=== PATIENT | female | born 1930 | race Caucasian/White ===

== ENCOUNTER 2020-05-18 00:30 | Inpatient (IN) | payer MEDICARE, BC ==
[2020-05-18] MEDS ORDERED: Ondansetron ODT 4 MG TAB PO PRN (02:24)
[2020-05-18] MEDS ORDERED: Calcium Carbonate 500 MG ChewTAB PO PRN (02:24)
--- NOTE | 2020-05-18 02:41 | PDOC.FPRHP ---
- History of Present Illness Chief Complaint: left arm weakness History of Present Illness: Pt is a 89yo F with a PMH who presents with chief complaint of HTN, HLD, Diabetes, history of melanoma. Patient stated today around 1600, she noticed her left arm started to become weak while to dress herself after getting out of the shower. She states her arm turned blue and it was a numbness/tingling sensation. She went to [place] ED and was evaluated there and then transferred to [facility]. She states she still has weakness and parasthesias in her arm, she thinks originating either at her shoulder or elbow and affecting her whole hand. She denies any episodes of anything like this in the past. She denies any repetitive motions overhead or doing any work outside of her ordinary everyday tasks and chores. She states she has been feeling normal recently and denies CHOWDHURY, vision changes, dizziness, SOB, LOC, CP, abdominal pain. Daughter notices some memory defecits where she does not remember telling her something, so she repeats it frequently. She denies any cardiac history or past history of stroke or TIA. She has occasional swelling in her LE which she elevates her legs to resolve, and occasional episodes of hypoglycemia when she forgets to eat. She used to be on insulin but now just takes Glipizide for her diabetes. She does not take her glucose at home, but was noted to be in the 30s when EMS arrived at her house today and was resolved with juice and a snack. She lives at home independently and is able to care for herself. ED Course: ASA, 20mg labetalol CT head negative CXR negative - Allergies/Adverse Reactions Allergies Allergy/AdvReac Type Severity Reaction Status Date / Time No Known Drug Allergies Allergy Verified 05/18/20 05:22 - History PMHx: HTN, HLD, Diabetes, history of melanoma PSHx: melanoma, knee replacement, c section, hysterectomy, appendix, eye, tonsils FHx: denies Social: denies alcohol, tobacco, drug history - Review of Systems General: denies: fever/chills Eyes: denies: vision changes Respiratory: denies: cough, shortness of breath Cardiovascular: reports: edema. denies: chest pain, palpitation Gastrointestinal: denies: nausea, vomiting Skin: denies: rashes Musculoskeletal: reports: pain Neurological: reports: numbness, weakness. denies: syncope - Vital signs BP: 199/99 HR: 80 RR: 16 Tmax: 98.3 Pox: 99% on RA Wt: 82kg - Physical Exam Constitutional: NAD, awake, alert and oriented HEENT: normocephalic and atraumatic, EOMI, grossly normal vision, grossly normal hearing Neck: supple Chest: no-tender to palpation -Heart: 1+ pitting edema b/l LE systolic murmur 3/6 appreciated on exam pulses not appreciated on exam of LUE, no pulse confirmed in radial or ulnar artery on bedside doppler Lungs: CTAB, no respiratory distress, no wheezing Abdomen: soft, non-tender Neurological: CN II-XII intact -Neurological: 4/5 weakness of left arm, with being slower to perform actions with left side left hand and arm cool to the touch Heme/Lymphatic: no unusual bruising or bleeding Psychiatric: normal mood and affect, good judgment and insight FMR H&P: Results - Labs Result Diagrams: 05/18/20 09:21 05/18/20 03:40 - EKG Interpretation EKG: NSR FMR H&P: A/P - Plan Left arm weakness 2/2 likely plexopathy vs acute upper extremity ischemia vs dissection vs TIA -patient with complaints of weakness, parasthesias and cool CHRISTEN extremity -pulses not appreciated on exam or with doppler, although were appreciated on ED provider exam -CTA of chest and LUE pending -lipid panel, A1C pending -consider CV surgery consult pending results of imaging -if CTA negative, will workup stroke rule out -PT/OT consulted Systolic murmur -new as per patient report -occasional LE swelling -echo pending -continuous cardiac monitoring HTN -aware, continue home meds -Hydralazine PRN HLD -aware, lipid panel pending -will start patient on statin Memory Defecit -aware -speech consulted for cognitive exam Diabetes -aware, continue home meds -history of hypoglycemia when she does not eat, will monitor -A1C pending -accu checks -SSI Dispo: admit to obs, stroke Diet: CC PCP: city call (Dr Hernandez) Fluids: KVO DVT ppx: Lovenox Code: DNAR, palliative consulted to discuss advance care planning FMR H&P: Upper Level - Plan Date/Time: 05/18/20 0236 Hai Hand PGY3, have evaluated this patient and agree with findings/plan as outlined by regulatory affairs internship resident. Pertinent changes/additions are listed here. 89-year-old female with medical history of type 2 diabetes presents for new onset weakness of left arm after getting hour of the shower around 4 PM. Transferred from [facility] and called for stroke workup. She states weakness, pain, and hand turning purple was noticed especially while trying to put on clothing, no loss of consciousness. She has history of cervical stenosis but it has not caused this symptom before. CT brain in [place] was negative. Otherwise patient asymptomatic. Daughter states that she has been having some memory problems recently repeating herself frequently. On exam patient is well-appearing, vitals show hypertension but otherwise normal. Cardiopulmonary exam significant for heart murmur. Neurologic exam significant for left upper extremity weakness and paresthesia. No pulses palpa dino on L radial or ulnar artery Assessment and plan LUE weakness Exam concerning for Acute upper extremity ischemia. Will get stat CTA RUE and Chest to r/o aortic dissection. If studies negative will workup TIA vs. CVA. She is out of window for TPA. CT brain normal. Status post aspirin. Will admit to stroke for observation. echocardiogram, CTA head and neck and MRI if CTAs vascular workup is negative, fasting lipid panel. Will consult physical therapy. Memory deficit Daughter states this has been more gradual problem however considering admission for neurologic deficit will consult speech therapy to do a cognitive assessment to establish baseline. Type 2 diabetes Consistent carb diet, sliding scale insulin, restart home medications History of hypertension, hyperlipidemia, melanoma MD aware, continue home meds Code-DNAR Disposition- stroke, observation, expect less than 2 midnights [facility] PCP-Dennis Hernandez Addendum - Attending - Attending Attestation Date/Time: 05/18/20 3389 I personally evaluated the patient and discussed the management with Dr. Hernandes/Hebert. I agree with the History, Examination, Assessment and Plan documented above with any addition or exceptions noted below. Patient here for sudden onset of arm weakness and paresthesias associated with lack of pulse and mottling of skin in that arm. CTA shows occlusion. Heparin drip, CV surgery consult.
[2020-05-18] MEDS ORDERED: Dextrose 50% Abboject 50 ML SYRINGE SLOW IVP PRN (03:52)
[2020-05-18] MEDS ORDERED: Dextrose 5% in Water 1,000 ML IV PRN (03:52)
[2020-05-18] MEDS ORDERED: HumaLOG 300 UNITS/3 ML VIAL SC PRN ×2 (03:52→03:59)
[2020-05-18 03:58] LABS: #Basophils 0.1 thou/uL (0.0-0.2); #Eosinphils 0.1 thou/uL (0.0-0.7); #Lymphocytes 1.8 thou/uL (1.20-3.40); #Monocytes 0.5 thou/uL (0.11-0.59); #Neutrophils 5.8 thou/uL (1.40-6.50); %Basophils 0.8 % (0.0-1.0); %Eosinophils 1.3 % (0.0-10.0); %Lymphocytes 22.2 % (21.0-51.0); %Monocytes 6.1 % (0.0-10.0); %Neutrophils 69.6 % (42.0-75.0); Hemoglobin 13.6 g/dL (12.0-16.0); Mean Corpuscular HGB CONC 32.5 g/dL (32.0-36.0); Mean Corpuscular Hemoglobin 29.7 pg (27.0-31.0); Mean Corpuscular Volume 91.3 fL (78.0-98.0); Mean Platelet Volume 10.7 fL (7.4-10.4); Platelet Count 151 thou/uL (130-400); RBC Distribution Width 12.2 % (11.5-14.5); Red Blood Cell (RBC) Count 4.59 mill/uL (4.20-5.40); White Blood Cell (WBC) Count 8.3 thou/uL (4.8-10.8)
[2020-05-18] MEDS ORDERED: hydrALAZINE 20 MG/ML VIAL SLOW IVP PRN (03:59)
[2020-05-18 04:19] LABS: Albumin 3.3 g/dL (3.4-4.8)
[2020-05-18 04:20] LABS: Chloride 101 mmol/L (98-107); Potassium 4.2 mmol/L (3.5-5.1); Sodium 133 mmol/L (136-145)
[2020-05-18 04:21] LABS: Calcium 8.7 mg/dL (7.8-10.44); Glucose 146 mg/dL (83-110)
[2020-05-18 04:22] LABS: Globulin 3.5 g/dL (2.4-3.5); Hemoglobin A1c 6.4 % (4.0-6.0); Protein, Total 6.8 g/dL (6.0-8.3); Triglycerides 131 mg/dL (Less than 150)
[2020-05-18 04:23] LABS: Bilirubin, Total 0.5 mg/dL (0.2-1.2); Carbon Dioxide 17 mmol/L (23-31)
[2020-05-18 04:24] LABS: Alkaline Phosphatase 29 U/L (40-110)
[2020-05-18 04:25] LABS: Calc. Creatinine Clearance 0 mL/min (70-130)
[2020-05-18 04:26] LABS: BUN (Urea Nitrogen) 25 mg/dL (9.8-20.1); Cholesterol 130 mg/dl (< 200 Desired)
[2020-05-18 04:27] LABS: ALT (SGPT) 9 U/L (8-55); AST (SGOT) 22 U/L (5-34); Cardiac Risk 2.8 (Less than 4.5); HDL Cholesterol 47 mg/dL (>60 Neg Risk); LDL Cholesterol, Calculated 57 mg/dL
[2020-05-18 04:40] LABS: Anion Gap 19 mmol/L (10-20)
[2020-05-18] MEDS ORDERED: Heparin 10,000 UNITS/ 10 ML VIAL SLOW IVP SCH ×2 (07:45→08:15)
[2020-05-18] MEDS ORDERED: Heparin 25,000 units/D5W 500 ML IVPB SCH ×2 (07:45→08:15)
[2020-05-18] MEDS ORDERED: Enoxaparin Sodium 40 MG/0.4 ML SYRINGE SC SCH (09:00)
--- NOTE | 2020-05-18 09:18 | CT ---
PRELIMINARY REPORT/[facility]/EMERGENCY AFTER HOURS PROCEDURE: EXAM: CTA Chest with Intravenous Contrast CLINICAL HISTORY: Eval for possible aortic dissection TECHNIQUE: Axial CTA images of the chest with intravenous contrast. Three-dimensional MIP/volume rendered reform ations were performed. CONTRAST: With; ISOVUE 370,100mL COMPARISON: None provided. FINDINGS: PULMONARY ARTERIES There is no intraluminal filling defect suspicious for PE. AORTA No thoracic aortic aneurysm or dissection. LUNGS The lungs are clear. No pulmonary mass. No focal airspace consolidation. PLEURAL SPACES No pleural effusion. No pneumothorax. HEART AND MEDIASTINUM No cardiomegaly. No significant pericardial effusion. LYMPH NODES No lymphadenopathy. BONES No focal osseous abnormality or acute fracture. Moderate degenerative changes of the spine. CHEST WALL AND UPPER ABDOMEN Images through the upper abdomen are unremarkable. The chest wall is unremarkable. IMPRESSION: There is no evidence of arterial emboli. There is no evidence of acute infiltrate or effusion. The central airway is patent.. ELECTRONICALLY SIGNED BY: Joanna Hidalgo DO May 18, 2020 6:07:19 AM MEDICAL DRIVER This report is intended for review by the ordering physician only, in accordance of law. If you recei ve this report in error, please call [facility] at [phone]. FINAL REPORT CTA OF THE CHEST CTA OF THE LEFT UPPER EXTREMITY WITH CONTRAST: HISTORY: Left upper extremity cool to touch. Evaluate for arterial occlusion. TECHNIQUE: 1. Multiple contiguous axial images were obtained in a CTA of the chest with contrast. Three-D sagi ttal and coronal MIP reformats were performed. 2. Multiple contiguous axial images were obtained in a CTA of the left upper extremity with contrast . Three-D sagittal and coronal MIP reformats were performed. FINDINGS/IMPRESSION: I agree with the findings and impression given in the preliminary report per [facility] physici an. 1. There is a segment of occlusion of the proximal left axillary artery over a length of approximate ly 2.8 cm. There is flow distally and this occlusion may be a partial occlusion or flow that is esta blished distally via collateral vasculature. 2. Left renal cyst. POS: EAA
[2020-05-18] MEDS: Aspirin 325 mg Enteric Coated Tablet PO SCH (09:29)
[2020-05-18 09:35] LABS: Hemoglobin 12.9 g/dL (12.0-16.0); Platelet Count 142 thou/uL (130-400)
[2020-05-18] MEDS: Senokot S 8.6-50 MG TAB PO SCH ×2 (09:50→20:23)
--- NOTE | 2020-05-18 09:50 | CT ---
PRELIMINARY REPORT/[facility]/EMERGENCY AFTER HOURS PROCEDURE: This report was discussed with Eryn Russell RN by Donald Belcher on May 18, 2020 06:30:00 CS T. Addendum electronically signed by Donald Belcher on May 18, 2020 6:35:52 AM DISABILITY CASE MANAGER EXAM: CTA Left upper extremity CLINICAL HISTORY: Eval for possible arterial occlusion to left upper extremity; Arm cool to touch; pt c/o weakness to e xtremity TECHNIQUE: Axial computed tomography images of the chest with intravenous contrast. CONTRAST: With; ISOVUE 370,100mL COMPARISON: None provided. FINDINGS: Aorta has a normal caliber. The opacification of the left subclavian artery is normal. At the junct ion of the subclavian and left axillary arterial region there is a cut off of contrast in this portio n of the left axillary artery. This may represent a partial or complete occlusion. There is contra st identified in the arterial structures just distal to this region including the distal axillary, th e brachial, cephalic and ulnar arteries which are patent. The osseous structures and soft tissues are appropriate for age. No acute osseous abnormality is not ed. IMPRESSION: Diminished contrast in a portion of the left axillary artery as discussed. A partial or complete occ lusion of the left axillary is noted. Just distal to this area there is contrast identified in the d istal axillary artery and the remainder of the left upper extremity arterial structures. Further inv estigation with angiography may be required for full differentiation. ELECTRONICALLY SIGNED BY: Joanna Hidalgo DO May 18, 2020 6:30:00 AM DISABILITY CASE MANAGER This report is intended for review by the ordering physician only, in accordance of law. If you recei ve this report in error, please call [facility] at [phone]. FINAL REPORT CTA OF THE CHEST CTA OF THE LEFT UPPER EXTREMITY WITH CONTRAST: HISTORY: Left upper extremity cool to touch. Evaluate for arterial occlusion. TECHNIQUE: 1. Multiple contiguous axial images were obtained in a CTA of the chest with contrast. Three-D sagi ttal and coronal MIP reformats were performed. 2. Multiple contiguous axial images were obtained in a CTA of the left upper extremity with contrast . Three-D sagittal and coronal MIP reformats were performed. FINDINGS/IMPRESSION: I agree with the findings and impression given in the preliminary report per [facility] physici an. 1. There is a segment of occlusion of the proximal left axillary artery over a length of approximate ly 2.8 cm. There is flow distally and this occlusion may be a partial occlusion or flow that is esta blished distally via collateral vasculature. 2. Left renal cyst.
[2020-05-18 09:52] LABS: Lactic Acid 1.9 mmol/L (0.5-2.2)
[2020-05-18] MEDS ORDERED: Lidocaine 1% PF 5 ML VIAL ONE (10:08)
[2020-05-18] MEDS ORDERED: Ondansetron PF 4 MG/2 ML Vial ONE (10:08)
[2020-05-18] MEDS ORDERED: Dexamethasone 20 MG/5 ML VIAL ONE (10:08)
[2020-05-18] MEDS ORDERED: PROPOFOL 200 MG/20 ML VIAL ONE (10:08)
[2020-05-18] MEDS ORDERED: Ketorolac Tromethamine 30 MG/ML VIAL ONE (10:08)
[2020-05-18] MEDS ORDERED: Glycopyrrolate 0.2 MG/ML 5 ML SYRINGE ONE (10:08)
[2020-05-18] MEDS ORDERED: Rocuronium Bromide 10 MG/ML (10ML VIAL) ONE (10:08)
--- NOTE | 2020-05-18 13:04 | CON ---
DATE OF CONSULTATION: HISTORY OF PRESENT ILLNESS: An 89-year-old female, who got out of the shower yesterday and developed pain in her left arm that has continued. She presented to the [place] ER, then presented here, where a CT angiogram showed an axillary artery occlusion. I was contacted this morning and heparin was_ started. PAST MEDICAL HISTORY: Negative for any cardiac problems and she has had no prior cardiac evaluations. She has history of diabetes mellitus, dyslipidemia, and hypertension as well as a history of melanoma. She has had a melanoma removed, I believe from her ear, as well as a previous knee replacement, hysterectomy, appendectomy, eye surgery, and tonsillectomy. SOCIAL HISTORY: She has never smoked, does not use drugs, and lives alone. She has otherwise been in good health. PHYSICAL EXAMINATION: GENERAL: She is an elderly lady, in no distress. NECK: Without bruits. LUNGS: Clear to auscultation anteriorly. CARDIAC: Reveals a systolic murmur across the precordium. Rhythm is regular. Rate is regular. ABDOMEN: Soft, nontender. EXTREMITIES: She has no edema in her legs, with palpable popliteal pulses, palpable right radial pulse, and no palpable pulses in her left arm. She has a monophasic left brachial signal, no signal in her wrist. Her hand has capillary fill with decreased sensation and she is able to move her fingers but not normally. 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 Certainly, if she is COVID positive, then she could be hypercoagulable as well. Agreed to do an embolectomy today. Job ID: [id number] [facility]
[2020-05-18] MEDS ORDERED: Iopamidol-370 76% 500 ML 1 ML ONE (13:15)
[2020-05-18] MEDS ORDERED: Protamine Sulfate 50 MG/5 ML VIAL ONE (13:44)
[2020-05-18] MEDS ORDERED: Heparin 5,000 UNITS/ML VIAL ONE (13:44)
[2020-05-18] MEDS ORDERED: Fentanyl 100 MCG/2 ML VIAL ONE (13:45)
[2020-05-18 13:53] LABS: SARS-CoV-2 NAA Rapid Test Not Detected (NotDetected)
[2020-05-18] MEDS ORDERED: Ondansetron HCl/PF 4 MG/2 ML Vial IVP PRN (16:03)
[2020-05-18] MEDS ORDERED: traMADol HCl 50 MG TAB PO PRN (16:07)
[2020-05-18] MEDS ORDERED: Fentanyl 100 MCG/2 ML VIAL SLOW IVP PRN (16:07)
[2020-05-18] MEDS: Lactated Ringer's 1,000 ML IV SCH (17:56)
[2020-05-18 18:09] LABS: PTT Greater than 250.0 sec (22.9-36.1)
[2020-05-18] MEDS: Atorvastatin Calcium 40 MG TAB PO SCH (20:22)
[2020-05-18] MEDS ORDERED: Enoxaparin Sodium 60 MG/0.6 ML SYRINGE SC SCH (21:00)
[2020-05-19 04:31] LABS: #Lymphocytes 1.1 thou/uL (1.20-3.40); #Monocytes 0.4 thou/uL (0.11-0.59); #Neutrophils 6.4 thou/uL (1.40-6.50); %Lymphocytes 13.5 % (21.0-51.0); %Monocytes 4.8 % (0.0-10.0); %Neutrophils 81.6 % (42.0-75.0); Hemoglobin 11.3 g/dL (12.0-16.0); Mean Corpuscular HGB CONC 32.7 g/dL (32.0-36.0); Mean Corpuscular Hemoglobin 29.3 pg (27.0-31.0); Mean Corpuscular Volume 89.6 fL (78.0-98.0); Mean Platelet Volume 9.5 fL (7.4-10.4); Platelet Count 140 thou/uL (130-400); Red Blood Cell (RBC) Count 3.85 mill/uL (4.20-5.40); White Blood Cell (WBC) Count 7.8 thou/uL (4.8-10.8)
[2020-05-19 05:24] VITALS: BMI 38.3
[2020-05-19] MEDS: HumaLOG 300 UNITS/3 ML VIAL SC PRN ×2 (06:10→17:57)
[2020-05-19] MEDS: Lactated Ringer's 1,000 ML IV SCH (06:26)
--- NOTE | 2020-05-19 06:28 | PDOC.FM ---
- Subjective Subjective: is doing well this morning. She says she can feel her arm and it is no longer cold or turning blue. - Objective Vital Signs & Weight: Vital Signs (12 hours) Temp Pulse Resp BP Pulse Ox 05/19/20 04:00 98.2 F 85 18 116/59 L 92 L 05/19/20 02:50 95 05/18/20 20:19 98.4 F 93 16 114/55 L 95 05/18/20 18:45 88 18 139/64 94 L Weight Admit Weight 84.958 kg Weight 88.995 kg I&O: 05/17/20 05/18/20 05/19/20 06:59 06:59 06:59 Intake Total 130 150 Balance 130 150 Result Diagrams: 05/19/20 04:23 05/19/20 07:36 EKG Reviewed by me: Yes (tele: ) Phys Exam - Physical Examination Constitutional: NAD HEENT: moist MMs, sclera anicteric Neck: no JVD, full ROM Respiratory: no wheezing, clear to auscultation bilateral Cardiovascular: RRR, no significant murmur Gastrointestinal: soft, non-tender Musculoskeletal: no edema, pulses present (radial pulse present in L upper extremity) Neurological: moves all 4 limbs Psychiatric: normal affect, A&O x 3 Skin: no rash Dx/Plan - Plan Plan: L subclavian artery occlusion s/p embolectomy -Patient with complaints of LUE weakness, parasthesias and cool CHRISTEN extremity. No pulses on presentation. -CTA LUE: partial or complete occlusion of L axillary artery -Received heparin bolus and was placed on heparin drip prior to procedure. PTT 250 post procedure. Now on lovenox BID. LR 50mL/hr. -CV surg consult (Tom): performed embolectomy on 05/18. Will hold lovenox today. Drain in place. Await further recommendations -PT/OT consulted Severe aortic stenosis -ECHO: EF 55-60%, severe aortic stenosis (0.7) -Patient denies CP or SOB. Does complain of occasional LE swelling -Consider cardiology consult HTN -Continue home meds -Hydralazine PRN HLD -Lipids wnl -Patient was started on a statin prophylactically, will now discontinue. Memory Deficit -speech consulted for cognitive exam Diabetes -continue home meds -A1C 6.4 -SSI prn Dispo: Discharge pending CV surg recommendations following LUE embolectomy Diet: CC PCP: [facility] call (Dr Hernandez) Fluids: KVO DVT ppx: Lovenox Code: DNAR, need to sign OOT DNR Addendum - Attending - Attending Attestation Date/Time: 05/19/20 3440 I personally evaluated the patient and discussed the management with Dr. Dominguez. I agree with the History, Examination, Assessment and Plan documented above with any addition or exceptions noted below. Patient reports improved L arm symptoms. Went for thrombectomy yesterday with CV surgery. Anticipate she will need chronic anticoagulation, discussed with patient this morning. Will await further recs from surgery, but once they give final recs/sign off the patient should be stable for discharge. She continues on Lovenox for now.
[2020-05-19 08:30] LABS: Anion Gap 14 mmol/L (10-20); BUN (Urea Nitrogen) 27 mg/dL (9.8-20.1); Calc. Creatinine Clearance 46 mL/min (70-130); Calcium 8.3 mg/dL (7.8-10.44); Carbon Dioxide 24 mmol/L (23-31); Chloride 100 mmol/L (98-107); Glucose 147 mg/dL (83-110); Sodium 134 mmol/L (136-145)
[2020-05-19] MEDS: Senokot S 8.6-50 MG TAB PO SCH ×2 (09:46→20:15)
[2020-05-19] MEDS: Aspirin 325 mg Enteric Coated Tablet PO SCH (09:46)
[2020-05-19] MEDS: Atorvastatin Calcium 40 MG TAB PO SCH (20:15)
[2020-05-19] MEDS ORDERED: Diltiazem 125 MG in Sodium Chloride 0.9% 100 ML IVPB SCH (23:45)
--- NOTE | 2020-05-20 02:12 | PDOC.BPN ---
- Brief Progress Note Encounter Date: 05/20/20 Encounter Time: 00:01 Was called by nursing and informed that the patient's pulse had increased to 140s - 160s, up to 200s when patient got up to go to the bathroom. BP was 126/72. Went to bedside, patient was asymptomatic, denying CP, SOB, cough, palpitations. On lung exam, she had crackles at bilateral bases. IV fluids were stopped. EKG was taken, which showed new onset atrial fibrillation with RVR. 20 mg IV dilt was given, her pulse did not improve in the next 15 minutes. BP was stable, 129//54 Second push of 30 mg IV diltiazem was given: her pulse briefly improved to the 100s-110s, then increased back to 140s. BP was 110/50 after IV push. Dilt drip was started, and will be titrated for rate control. If her BP is unable to tolerate or we are unable to achieve rate control, we will switch to amiodarone. For new onset afib, TSH, mag and phos were added to AM labs.
[2020-05-20] MEDS ORDERED: Amiodarone 150 MG, Admixture Fee 1 EACH in Dextrose 5% in Water 100 ML IVPB SCH (03:00)
[2020-05-20] MEDS: Amiodarone 450 MG in Dextrose 5% in Water 250 ML IVPB SCH ×2 (03:47→11:54)
[2020-05-20 04:29] LABS: #Eosinphils 0.1 thou/uL (0.0-0.7); #Lymphocytes 1.8 thou/uL (1.20-3.40); #Monocytes 0.6 thou/uL (0.11-0.59); #Neutrophils 4.6 thou/uL (1.40-6.50); %Basophils 0.2 % (0.0-1.0); %Eosinophils 1.3 % (0.0-10.0); %Lymphocytes 25.3 % (21.0-51.0); %Monocytes 8.2 % (0.0-10.0); Hemoglobin 10.6 g/dL (12.0-16.0); Mean Corpuscular HGB CONC 33.1 g/dL (32.0-36.0); Mean Corpuscular Hemoglobin 29.8 pg (27.0-31.0); Mean Platelet Volume 9.6 fL (7.4-10.4); Platelet Count 130 thou/uL (130-400); Red Blood Cell (RBC) Count 3.55 mill/uL (4.20-5.40); White Blood Cell (WBC) Count 7.1 thou/uL (4.8-10.8)
[2020-05-20 04:49] LABS: Magnesium 1.8 mg/dL (1.6-2.6); Phosphorus 2.3 mg/dL (2.3-4.7)
[2020-05-20] MEDS ORDERED: Enoxaparin Sodium 40 MG/0.4 ML SYRINGE SC SCH (05:30)
--- NOTE | 2020-05-20 05:40 | PRG ---
DATE OF SERVICE: As expected, the patient went into atrial fibrillation, which I suspect was her underlying intermittent rhythm at home, which had resulted in her embolus to the left arm. In any event, the bleeding from the left arm seems to have decreased over the past 24 hours with holding her Lovenox. Her wound has some mild bruising and minimal swelling and she has a good pulse, although it is rapid this morning in her left wrist. At this time, I will at least start her on low-dose Eliquis and consider increasing her dose if appropriate for her age and renal function in the next day or so. I will leave the drain in this morning. Job ID: [id number]
[2020-05-20] MEDS: HumaLOG 300 UNITS/3 ML VIAL SC PRN ×2 (05:54→11:54)
--- NOTE | 2020-05-20 06:09 | OP ---
DATE OF PROCEDURE: 05/18/2020 PREOPERATIVE DIAGNOSIS: Embolus to the left subclavian artery. POSTOPERATIVE DIAGNOSIS: Embolus to the left subclavian artery. PROCEDURE PERFORMED: Embolectomy, left subclavian artery. ANESTHESIA: General. ESTIMATED BLOOD LOSS: Less than 100. DESCRIPTION OF PROCEDURE: After adequate anesthesia had been obtained, ultrasound was used to isolate the proximal axillary artery. The patient was then prepped and draped and an incision made extending up to the edge of the pectoralis. Dissection was then carried through the subcutaneous tissues isolating the axillary artery. Brachial plexus was gently retracted with loops and then the axillary artery was followed proximally well up under the pectoralis muscle. As far as could be palpated, the subclavian artery had no pulse. Following an additional 5000 units of heparin in addition to the 1000 units an hour that was running, arteriotomy performed in the axillary artery transversely and a 3 Boo passed, first 10, then 20 cm, removing no thrombus. There was some backbleeding from the arteriotomy from distally. Finally, a pass was made to 30 cm with no thrombus and finally some resistance met at 40 cm and withdrawing the catheter on two occasions, withdrew some fresh thrombus as well as some formed thrombotic material that was sent for pathology. There was excellent forward flow at that point, and the arteriotomy was then closed with mattress sutures interrupted. A good brachial and then radial pulse developed. I was hesitant to reverse the heparin, and for this reason, a Ozzy drain was placed through a separate stab incision in the wound, and the wound closed in layers. The patient is to be taken to recovery room. Job ID: [id number]
--- NOTE | 2020-05-20 06:43 | PDOC.FM ---
- Subjective Subjective: went into Afib w/RVR last night, HRmax 180s. She was given 2 pushes on dilt (20 and 30) and then placed on a dilt drip which did not rate control her. She has since been placed on an amiodarone drip and her HR is inthe 130s. Patient has been asymptomatic all night. She denies SOB or CP though she states she is scared to move or breath in because she doesn't know what will happen. - Objective Vital Signs & Weight: Vital Signs (12 hours) Temp Pulse Resp BP Pulse Ox 05/20/20 03:30 98.8 F 136 H 18 97 05/20/20 02:08 140 H 134/60 05/19/20 23:45 108/69 05/19/20 23:02 126/72 05/19/20 19:30 98.8 F 91 18 121/56 L 95 Weight Admit Weight 84.958 kg Weight 90.809 kg I&O: 05/18/20 05/19/20 05/20/20 06:59 06:59 06:59 Intake Total 599 137 3291.5 Output Total 290 1040 Balance 130 -140 1953.5 Result Diagrams: 05/20/20 04:09 05/19/20 07:36 EKG Reviewed by me: Yes (Afib w/RVR, 130s) Phys Exam - Physical Examination Constitutional: NAD HEENT: moist MMs, sclera anicteric Neck: full ROM Respiratory: clear to auscultation bilateral Cardiovascular: RRR murmur consistent with aortic stenosis Gastrointestinal: soft, non-tender, no distention Musculoskeletal: no edema, pulses present Neurological: moves all 4 limbs Psychiatric: normal affect, A&O x 3 Skin: no rash Dx/Plan - Plan Plan: L subclavian artery occlusion s/p embolectomy -Patient with complaints of LUE weakness, parasthesias and cool CHRISTEN extremity. No pulses on presentation. -CTA LUE: partial or complete occlusion of L axillary artery -Received heparin bolus and was placed on heparin drip prior to procedure. PTT 250 post procedure. Was on lovenox BID. Now on eliquis. -CV surg consult (Tom): performed embolectomy on 05/18. Drain in place, output is reduced. Initiate eliquis therapy. Will follow recs. -PT/OT consulted Afib w/RVR -Last night patient went into Afib w/RVR, HR 180s. She was asymptomatic. -Did respond to diltiazem drip and is now on amiodarone drip. -Restart home HCTZ-losartan and metoprolol today -Cardiology consult this AM Severe aortic stenosis -ECHO: EF 55-60%, severe aortic stenosis (0.7) -Patient denies CP or SOB. Does complain of occasional LE swelling HTN -Continue home meds -Hydralazine PRN HLD -Lipids wnl -Continue atorvastatin started this visit due to patient's calculated ASCVD risk. Dementia - on [place] Mental Status Examination -Deficits in memory, mental manipulation, and clock drawing Diabetes -continue home meds -A1C 6.4 -SSI prn Dispo: Consult cardiology today for new onset Afib w/RVR. Continue to follow CV surg recs. Diet: CC PCP: [facility] call (Dr Hernandez) Fluids: KVO DVT ppx: Lovenox Code: DNAR Addendum - Attending - Attending Attestation Date/Time: 05/20/20 7080 I personally evaluated the patient and discussed the management with Dr. Dominguez. I agree with the History, Examination, Assessment and Plan documented above with any addition or exceptions noted below. Patient here for L axillary artery occlusion s/p thrombectomy with CV surgery. Last night, she converted into Afib RVR. This continued despite IV diltiazem IVP and drip. She is now on Amiodarone. Will also initiate some PO beta ken this morning. Suspect that she has been having Afib for some time which likely led to her thrombus. She continues on anticoagulation. May need cardiology involvement, TTE already complete showing LA dilation which certainly puts her at risk for Afib.
[2020-05-20] MEDS: Aspirin 81 mg Enteric Coated Tablet PO SCH (08:01)
[2020-05-20] MEDS: Ascorbic Acid 500 mg Chewable Tablet PO SCH (08:02)
[2020-05-20] MEDS: Apixaban 2.5 MG TAB PO SCH ×2 (08:02→20:53)
[2020-05-20] MEDS: Fenofibrate Nanocrystallized 145 MG TAB PO SCH (08:02)
[2020-05-20] MEDS: Senokot S 8.6-50 MG TAB PO SCH ×2 (08:02→20:52)
[2020-05-20] MEDS: Losartan/Hydrochlorothiazide 100 mg/25 mg Tablet PO SCH (08:02)
[2020-05-20 08:12] LABS: Hemoglobin 10.7 g/dL (12.0-16.0); Platelet Count 127 thou/uL (130-400)
[2020-05-20 08:22] LABS: Anion Gap 14 mmol/L (10-20); BUN (Urea Nitrogen) 26 mg/dL (9.8-20.1); Calc. Creatinine Clearance 62 mL/min (70-130); Calcium 7.9 mg/dL (7.8-10.44); Carbon Dioxide 21 mmol/L (23-31); Chloride 100 mmol/L (98-107); Glucose 161 mg/dL (83-110); Potassium 4.1 mmol/L (3.5-5.1); Sodium 131 mmol/L (136-145)
[2020-05-20] MEDS ORDERED: glipiZIDE 5 MG TAB PO SCH (08:30)
[2020-05-20 12:26] LABS: Hemoglobin 11.3 g/dL (12.0-16.0); Platelet Count 138 thou/uL (130-400)
[2020-05-20] MEDS: Atorvastatin Calcium 40 MG TAB PO SCH (20:52)
[2020-05-21 05:10] LABS: Anion Gap 13 mmol/L (10-20); BUN (Urea Nitrogen) 25 mg/dL (9.8-20.1); Calc. Creatinine Clearance 58 mL/min (70-130); Calcium 8.1 mg/dL (7.8-10.44); Carbon Dioxide 26 mmol/L (23-31); Chloride 98 mmol/L (98-107); Glucose 135 mg/dL (83-110); Potassium 3.9 mmol/L (3.5-5.1); Sodium 133 mmol/L (136-145)
[2020-05-21 05:13] LABS: #Basophils 0.1 thou/uL (0.0-0.2); #Eosinphils 0.2 thou/uL (0.0-0.7); #Lymphocytes 2.3 thou/uL (1.20-3.40); #Monocytes 0.6 thou/uL (0.11-0.59); #Neutrophils 3.5 thou/uL (1.40-6.50); %Basophils 0.8 % (0.0-1.0); %Eosinophils 3.5 % (0.0-10.0); %Lymphocytes 34.4 % (21.0-51.0); %Monocytes 9.1 % (0.0-10.0); %Neutrophils 52.2 % (42.0-75.0); Hemoglobin 10.7 g/dL (12.0-16.0); Mean Corpuscular HGB CONC 31.2 g/dL (32.0-36.0); Mean Corpuscular Hemoglobin 28.8 pg (27.0-31.0); Mean Platelet Volume 10.3 fL (7.4-10.4); Platelet Count 141 thou/uL (130-400); RBC Distribution Width 12.1 % (11.5-14.5); Red Blood Cell (RBC) Count 3.71 mill/uL (4.20-5.40); White Blood Cell (WBC) Count 6.7 thou/uL (4.8-10.8)
--- NOTE | 2020-05-21 06:52 | PDOC.FM ---
- Subjective Subjective: is doing well this morning and has no complaints. She denies pain/numbness/tingling in her Lt arm, pulse is 2+, and she is able to move it well with 5/[address] Santos removed the drain this morning. She has been in sinus rhythm since d/c of Amiodarone yesterday afternoon. - Objective Vital Signs & Weight: Vital Signs (12 hours) Temp Pulse Resp BP Pulse Ox 05/21/20 03:52 97.9 F 76 16 140/63 96 05/20/20 19:45 97.9 F 77 16 126/61 99 Weight Admit Weight 84.958 kg Weight 91.354 kg I&O: 05/19/20 05/20/20 05/21/20 06:59 06:59 06:59 Intake Total 150 2993.5 921.2 Output Total 290 1440 1335 Balance -140 1553.5 -413.8 Result Diagrams: 05/21/20 04:32 05/21/20 04:23 Phys Exam - Physical Examination Constitutional: NAD Neck: supple, full ROM Basilar crackles b/l Cardiovascular: RRR Systolic murmur c/w hx of sortic stenosis Musculoskeletal: no edema, pulses present Neurological: non-focal, moves all 4 limbs Psychiatric: normal affect, A&O x 3 Skin: no rash Dx/Plan - Plan Plan: This is an 89yo F who presented for a weak, cold, blue, numb/tingling L UE and found to have an 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 No pulses on presentation. -CTA LUE: partial or complete occlusion of L axillary artery -CV surg consult (Tom): performed embolectomy on 05/18. Appreciate recs. * Drain removed this am -On Eliquis -PT/OT consulted and recommend rehab. Post-acute screen order has been placed * Pt states she lives with her daughter who gets HH with PT, and this is what she wants to do. Afib w/RVR -Amio gtt d/c yesterday afternoon. Currently, not on any rhythm control -Restart home HCTZ-losartan and metoprolol Severe aortic stenosis -ECHO: EF 55-60%, severe aortic stenosis (0.7) -Patient denies CP or SOB. Does complain of occasional LE swelling -Cardiology consulted and recommend outpt f/u HTN -Continue home meds -Hydralazine PRN HLD -Lipids wnl -Continue atorvastatin started this visit due to patient's calculated ASCVD risk. Dementia - on [place] Mental Status Examination -Deficits in memory, mental manipulation, and clock drawing Diabetes -continue home meds -A1C 6.4 -SSI prn Dispo: Continue to follow CV surg. Placement pending post-acute screen; PT/OT recommend rehab. Diet: CC PCP: city call (Dr Hernandez) Fluids: KVO DVT ppx: Lovenox Code: DNAR
[2020-05-21] MEDS: Aspirin 81 mg Enteric Coated Tablet PO SCH (07:53)
[2020-05-21] MEDS: Fenofibrate Nanocrystallized 145 MG TAB PO SCH (07:53)
[2020-05-21] MEDS: glipiZIDE 5 MG TAB PO SCH (07:53)
[2020-05-21] MEDS: Ascorbic Acid 500 mg Chewable Tablet PO SCH (07:53)
[2020-05-21] MEDS: Apixaban 2.5 MG TAB PO SCH (07:54)
[2020-05-21] MEDS: Senokot S 8.6-50 MG TAB PO SCH ×2 (07:54→22:16)
[2020-05-21] MEDS: Losartan/Hydrochlorothiazide 100 mg/25 mg Tablet PO SCH (08:00)
--- NOTE | 2020-05-21 12:52 | PDOC.FMACP ---
Advance Care Planning - Problem (1) Atrial fibrillation with RVR Status: Acute Code(s): I48.91 - UNSPECIFIED ATRIAL FIBRILLATION (2) Aortic stenosis Status: Acute Code(s): I35.0 - NONRHEUMATIC AORTIC (VALVE) STENOSIS (3) Palliative care encounter Status: Acute Code(s): Z51.5 - ENCOUNTER FOR PALLIATIVE CARE (4) HTN (hypertension) Status: Acute Code(s): I10 - ESSENTIAL (PRIMARY) HYPERTENSION - Note Participants: patient, palliative care Summary: Palliative care addressed Advanced Care Planning. The diagnosis, prognosis and goals of care were discussed. Appropriate forms and documentation to accomplish the goals of care were discussed. All questions were answered. *Confirmed DNAR *Completed OOHDNAR *Completed MPOA and Directive to physician. Original and copy given to patient, copy placed on chart for medical records. Palliative Care will sign off as Directives addressed. Please reconsult if we can assist in the future with Goal of care, complex decision making, support or coping. Thank you for this very appropriate consult. Time Spent (mins): 15
[2020-05-21] MEDS ORDERED: Apixaban 2.5 MG TAB PO SCH (14:04)
--- NOTE | 2020-05-21 14:15 | PRG ---
DATE OF SERVICE: 05/21/2020 is a very interesting, pleasant lady, who is found to have occlusion of her left axillary artery causing symptomatic pain and tingling as well as cyanosis in her arm. She was seen by CV Surgery and underwent an embolectomy successfully. She is currently symptom free. She also was found to have aortic stenosis, but she has had no angina, shortness of breath, or syncope. She has been urged to follow up with a winder operator in [place] after discharge from our care and she will go there today with a daughter. Job ID: [id number]
[2020-05-21] MEDS ORDERED: Apixaban 5 MG TAB PO SCH (14:30)
[2020-05-21] MEDS: Acetaminophen 325 MG TAB PO PRN (22:15)
[2020-05-21] MEDS: Atorvastatin Calcium 40 MG TAB PO SCH (22:17)
[2020-05-21] MEDS: Apixaban 5 MG TAB PO SCH (22:17)
[2020-05-22 04:43] LABS: #Eosinphils 0.4 thou/uL (0.0-0.7); #Lymphocytes 1.9 thou/uL (1.20-3.40); #Monocytes 0.6 thou/uL (0.11-0.59); #Neutrophils 4.3 thou/uL (1.40-6.50); %Basophils 0.5 % (0.0-1.0); %Eosinophils 5.2 % (0.0-10.0); %Lymphocytes 26.2 % (21.0-51.0); %Monocytes 8.5 % (0.0-10.0); %Neutrophils 59.5 % (42.0-75.0); Hemoglobin 10.8 g/dL (12.0-16.0); Mean Corpuscular HGB CONC 33.3 g/dL (32.0-36.0); Mean Corpuscular Hemoglobin 29.9 pg (27.0-31.0); Mean Corpuscular Volume 89.7 fL (78.0-98.0); Mean Platelet Volume 9.8 fL (7.4-10.4); Platelet Count 152 thou/uL (130-400); RBC Distribution Width 11.9 % (11.5-14.5); Red Blood Cell (RBC) Count 3.63 mill/uL (4.20-5.40); White Blood Cell (WBC) Count 7.2 thou/uL (4.8-10.8)
--- NOTE | 2020-05-22 06:24 | PDOC.FM ---
- Subjective Subjective: is doing well this morning and has no complaints. She continues to deny CP, SOB, dizziness. She worked with PT yesterday and thinks she did well. She is eager to go home and is agreeable to seeing Dr. Belcher this am in the OP setting. She understands her need to be on Eliquis. She has continued to be in NSR on tele. - Objective Vital Signs & Weight: Vital Signs (12 hours) Temp Pulse Resp BP Pulse Ox 05/22/20 03:58 98.3 F 72 18 176/72 H 98 05/22/20 03:52 96 05/21/20 23:58 98.9 F 76 163/68 H 05/21/20 21:20 99.7 F H 75 16 114/75 96 Weight Admit Weight 84.958 kg Weight 91.354 kg I&O: 05/20/20 05/21/20 05/22/20 06:59 06:59 06:59 Intake Total 2993.5 921.2 960 Output Total 1440 1335 600 Balance 1553.5 -413.8 360 Result Diagrams: 05/22/20 06:42 05/22/20 06:42 Phys Exam - Physical Examination Constitutional: NAD Neck: supple, full ROM Respiratory: clear to auscultation bilateral Cardiovascular: RRR Systolic murmur c/w hx of Neurological: non-focal, moves all 4 limbs Psychiatric: normal affect, A&O x 3 Skin: no rash Dx/Plan - Plan Plan: This is an 89yo F who presented for a weak, cold, blue, numb/tingling L UE and found to have an 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 No pulses on presentation. -CTA LUE: partial or complete occlusion of L axillary artery -CV surg consult (Tom): performed embolectomy on 05/18. Cleared for d/c -On Eliquis. Insurance will cover it. -PT/OT consulted and recommend rehab. Pt states she wants to live with her daughter and get HH with PT/OT. Afib w/RVR -Currently, not on any rhythm control -Home metoprolol Severe aortic stenosis -ECHO: EF 55-60%, severe aortic stenosis (0.7) -Patient denies CP or SOB. Does complain of occasional LE swelling -Cardiology consulted and recommend outpt f/u. Appt with Dr. Belcher this am. HTN -Continue home HCTZ-losartan -Hydralazine PRN -Will defer better control to outpt setting HLD -Lipids wnl -Continue atorvastatin started this visit due to patient's calculated ASCVD risk. Dementia - on [place] Mental Status Examination -Deficits in memory, mental manipulation, and clock drawing Diabetes -continue home meds -A1C 6.4 -SSI prn Dispo: Plan for discharge today to daughter's home with HH and therapy services. Has an appt with Dr. Belcher this am in the OP setting. Will recommend f/u with Dr. Santos, as well. Diet: CC PCP: city call (Dr Hernandez) Fluids: KVO DVT ppx: Lovenox Code: DENI
[2020-05-22 06:54] LABS: Hemoglobin 11.1 g/dL (12.0-16.0); Platelet Count 149 thou/uL (130-400)
[2020-05-22 07:12] LABS: Anion Gap 14 mmol/L (10-20); BUN (Urea Nitrogen) 24 mg/dL (9.8-20.1); Calc. Creatinine Clearance 66 mL/min (70-130); Calcium 8.3 mg/dL (7.8-10.44); Carbon Dioxide 22 mmol/L (23-31); Chloride 100 mmol/L (98-107); Glucose 101 mg/dL (83-110); Magnesium 1.8 mg/dL (1.6-2.6); Potassium 3.6 mmol/L (3.5-5.1); Sodium 132 mmol/L (136-145)
[2020-05-22 07:59] VITALS: BP 153/69; TEMP 98.2
[2020-05-22] MEDS: Ascorbic Acid 500 mg Chewable Tablet PO SCH (08:41)
[2020-05-22] MEDS: Fenofibrate Nanocrystallized 145 MG TAB PO SCH (08:41)
[2020-05-22] MEDS: glipiZIDE 5 MG TAB PO SCH (08:41)
[2020-05-22] MEDS: Apixaban 5 MG TAB PO SCH (08:41)
[2020-05-22] MEDS: Senokot S 8.6-50 MG TAB PO SCH (08:42)
[2020-05-22] MEDS: Losartan/Hydrochlorothiazide 100 mg/25 mg Tablet PO SCH (08:42)
[2020-05-22] MEDS: Acetaminophen 325 MG TAB PO PRN (08:44)
--- NOTE | 2020-05-22 13:45 | PRG ---
DATE OF SERVICE: 05/22/2020 feels fine this morning. No shortness of breath or chest discomfort. She has appointment to see Cardiology at 11 o'clock regarding her aortic stenosis and she will be discharged for this appointment. Job ID: [id number]
--- NOTE | 2020-05-23 13:18 | DIS ---
DATE OF ADMISSION: 05/20/2020 DATE OF DISCHARGE: 05/22/2020 CONSULTS: PT/OT, Speech (05/18); Cardiovascular Surgery, Dr. Santos in (05/18). PROCEDURES: 1. Chest/thorax CTA (05/18) showing occlusion of the proximal left axillary artery. 2. Upper extremity CTA (05/18) showing a partial or complete occlusion of the left axillary. 3. Left subclavian occlusion embolectomy on 05/18. PRIMARY DIAGNOSIS: Left subclavian artery occlusion, status post embolectomy. SECONDARY DIAGNOSES: Severe aortic stenosis, atrial fibrillation with rapid ventricular rate, diabetes, hypertension, hyperlipidemia, history of melanoma. DISCHARGE MEDICATIONS: 1. Eliquis 5 mg p.o. b.i.d. 2. Atorvastatin 80 mg p.o. at bedtime. 3. Hyzaar 1 tab p.o. daily. 4. Meloxicam 7.5 mg p.o. daily. 5. Vitamin C 1000 mg p.o. daily. 6. Metoprolol succinate 100 mg p.o. daily. 7. Glipizide 5 mg p.o. daily. 8. Fenofibrate 160 mg p.o. daily. DISCONTINUED MEDICATIONS: None. HISTORY OF PRESENT ILLNESS/HOSPITAL COURSE: This is an 89-year-old female who presented with left arm weakness while trying to dress herself, as well as turning blue and feeling numb. She has no history of cardiac history or history of stroke or TIA. Cardiovascular Surgery, Dr. Santos was consulted from the ED given the results of the CTAs as described above. He performed an embolectomy that same day, after which her weakness, blue discoloration, paresthesias resolved, and her left arm regained all of its normal function. On 05/20, the patient develops new onset atrial fibrillation with RVR. She was given IV total diltiazem and was started on a diltiazem drip. Rate control could not be achieved since she was switched to an amiodarone drip. Later that day, she was taken off the amiodarone drip and left only on her home metoprolol and Hyzaar. She maintained normal sinus rhythm with an appropriate rate for the rest of her stay. However, given the finding of severe aortic stenosis on echo, in addition to the new onset atrial fibrillation with RVR, in the setting of an unprovoked thrombus, Cardiology felt it would be beneficial to see her in outpatient setting. An appointment was set up for her to meet with Dr. Belcher the following morning at 11 a.m. DISPOSITION: Stable. DISCHARGE INSTRUCTIONS: Location: Home with Home Health. Diet: Consistent carb/heart healthy. Activity: As tolerated. Followup: The patient is encouraged to follow up with her primary care physician in 7-10 days of discharge. The patient is encouraged to follow up with Dr. Santos in the outpatient setting in about 3 weeks. The patient is encouraged to follow up with a fuel system maintenance supervisor, such as Dr. Belcher, per his recommendations when she sees him for her first appointment. Job ID: [id number]
--- NOTE | 2020-05-25 12:21 | PQF ---
CLINICAL DOCUMENTATION CLARIFICATION FORM: Dear : Satish Solo MD Date / Time: 05/25/2020 Please exercise your independent, professional judgment in responding to the clarification form. Clinical indicators are provided on the bottom of this form for your review Please check appropriate box(s): [ ] Paroxysmal Atrial Fibrillation [ ] Permanent Atrial Fibrillation [ ] Persistent Atrial Fibrillation [ ] Long Standing Persistent Atrial Fibrillation [ ] Chronic Atrial Fibrillation [ ] Atrial Fibrillation/Atrial flutter [ ] Atrial Flutter [ ] Post-Operative Complication - Atrial Fibrillation [ ] Paroxysmal Atrial Fibrillation [ ] Persistent Atrial Fibrillation [ ] Other Diagnosis (Please specify if any) [ ] Unable to Determine In addition, please specify: Present on Admission (POA): [ ] Yes [ ] No [ ] Unable to Determine Physician Signature: Date/Time: For continuity of documentation, please document condition throughout progress notes and discharge summary. Thank You. To be completed by CDI/Coding staff for physician review: Present Clinical Indicators - Signs / Symptoms / Labs Results and Location in Medical Record [ ] Cardiac Rhythm strip and or Abnormal EKG [X] Occulsion of left axillay artery, most likely from atrial fibrillation Consult on 05/18 [X] EKG was taken, which showed new onset atrial fibrillatio with RVR. Progress notes on 05/20 [X] Patient went into atrial fibrillation, which I suspect was her underlying intermittent rhythm at home Progress notes on 05/20 [ ] Palpitations Present Risk Factors Results and Location in Medical Record [X] Hypertension H&P on 05/18 [ ] Coronary heart disease [ ] CABG this admission Present Treatments Results and Location in Medical Record [X] Eliquis 5 mgPO Medication on 05/21 [X] Cardizem 30 mg PO Medication on 05/19,05/20 [X] Cordarone 450 mg Medication on 05/20 CDS/King Maker Signature: AAS Phone #: Date/Time: 05/25/2020 This is a permanent part of the Medical Record [facility]
== END 2020-05-22 10:00 | disposition home health service (06) | DRG 272 ==
LOC: ERS 00:30 → 2NO 01:51 → OBSVTOIN 05-20 09:10
PROVIDERS: ADMIT Student in an Organized Health Care Education/Training Program; ATTEND Student in an Organized Health Care Education/Training Program
PROC: 03C Upper Arteries, Extirpation (ICD-10-PCS; principal; 2020-05-18)
DX: I74.8 Embolism and thrombosis of other arteries (principal); I10 Essential (primary) hypertension; E11.9 Type 2 diabetes mellitus without complications; E78.5 Hyperlipidemia, unspecified; Z51.5 Encounter for palliative care; Z96.659 Presence of unspecified artificial knee joint; Z66 Do not resuscitate; I48.91 Unspecified atrial fibrillation; I35.0 Nonrheumatic aortic (valve) stenosis; F03.90 Unspecified dementia, unspecified severity, without behavioral disturbance, psychotic disturbance, mood disturbance, and anxiety; Z85.820 Personal history of malignant melanoma of skin; Z94.9 Transplanted organ and tissue status, unspecified; Z90.710 Acquired absence of both cervix and uterus; Z90.89 Acquired absence of other organs; Z79.899 Other long term (current) drug therapy; Z79.4 Long term (current) use of insulin; Z20.828 Contact with and (suspected) exposure to other viral communicable diseases; R23.0 Cyanosis
CPT/HCPCS: 36415; 36416; 71275; 80048; 80053; 80061; 83036; 83605; 83735; 84100; 84443; 85025; 85730; 88304; 93005; 93010; 93306; 94760; 96372; 96374; 96375; 96376; G0378; J0282; J0690; J1644; J1650; J2720; J3010; J3490; J7070; U0002